=== PATIENT | male | born 1975 | race African-American/Black ===

== ENCOUNTER 2018-07-26 10:13 | Emergency (ER) | payer OTHER ==
[2018-07-26] MEDS ORDERED: ALBUTEROL SULFATE 0.083% NEB 2.5 MG/3 ML AMPUL NEB ONE (11:51)
[2018-07-26] MEDS ORDERED: KETOROLAC TROMETHAMINE 60 MG/2 ML SDV IM ONE (11:51)
--- NOTE | 2018-07-26 11:52 | ER Document Report ---
ED General - General Chief Complaint: Back Pain Stated Complaint: TAIL BONE PAIN Time Seen by Provider: 07/26/18 11:09 Notes: Patient is a 42-year-old male that presents to the emergency department for chief complaint of tailbone pain and cough and shortness of breath. Patient states he started having congestion and cough over the course of the weekend, and he was coughing so hard that it started causing pain in his tailbone and sacrum. Is been taking Aleve without much relief of this. 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 He describes the pain as a 6 out of 10, aching in nature, worse with sitting on it. He also states the cough has been productive over the weekend as well, he denies history of fevers, chills, night sweats, nausea, vomiting, chest pain or difficulty breathing just mild shortness of breath. Past Medical History: Denies chronic conditions Past Surgical History: Denies surgical history Social History: Admits to smoking cigarettes daily, denies alcohol or drug use Family History: Reviewed and noncontributory for presenting illness Allergies: Reviewed, see documented allergy list. REVIEW OF SYSTEMS: Unless otherwise stated in this report the patient's positive and negative responses for review of systems for constitutional, eyes, ENT, cardiovascular, respiratory, gastrointestinal, neurological, genitourinary, musculoskeletal, and integumentary systems and related systems to the presenting problem are either as stated in the HPI or were not pertinent or were negative for the symptoms and/or complaints related to the presenting medical problem. PHYSICAL EXAMINATION: Vital signs reviewed, nursing noted reviewed. GENERAL: Well-appearing, well-nourished and in no acute distress. HEAD: Atraumatic, normocephalic. EYES: Eyes appear normal, extraocular movements intact, sclera anicteric, conjunctiva are normal. ENT: nares patent, oropharynx clear without exudates. Moist mucous membranes. NECK: Normal range of motion, supple without lymphadenopathy LUNGS: Unilateral left lower lobe crackles and wheezing noted, otherwise breath sounds clear to auscultation in the other lung rose HEART: Regular rate and rhythm without murmurs ABDOMEN: Soft, nontender, normoactive bowel sounds. No rebound, guarding, or rigidity. No masses appreciated. Back: The coccyx and sacrum were palpated, and were tender midline, no presence of any pilonidal cyst or other infection. No induration. EXTREMITIES: Nontender, good range of motion, no pitting or edema. NEUROLOGICAL: No focal neurological deficits. Moves all extremities spontaneously Motor and sensory grossly intact on exam. PSYCH: Normal mood, normal affect. SKIN: Warm, Dry, normal turgor, no rashes or lesions noted on exposed skin TRAVEL OUTSIDE OF THE [place] IN LAST 30 DAYS: No - Related Data Allergies/Adverse Reactions: No Known Allergies Allergy (Verified 07/26/18 10:37) Past Medical History - Social History Smoking Status: Current Every Day Smoker Chew tobacco use (# tins/day): No Frequency of alcohol use: Social Drug Abuse: None Family History: Reviewed & Not Pertinent Patient has suicidal ideation: No Patient has homicidal ideation: No Renal/ Medical History: Denies: Hx Peritoneal Dialysis Physical Exam - Vital signs Vitals: Temp Pulse Resp BP Pulse Ox 98.9 F 86 20 132/77 H 97 07/26/18 10:30 07/26/18 10:30 07/26/18 10:30 07/26/18 10:30 07/26/18 10:30 Course - Re-evaluation Re-evalutation: Patient seen and examined vital signs reviewed. Laboratory data and imaging were ordered as appropriate for the patient's presenting symptoms and complaint, with consideration of any critical or life threatening conditions that may be associated with their obtained history and exam as noted above. Patient was treated with Toradol 60 mg IM Results were reviewed when available and demonstrated left lower lobe pneumonia , which is consistent with the patient's clinical examination The patient was re-evaluated and was stable, improved Evaluation was most consistent with left lower lobe community-acquired pneumonia , coccydynia Results were discussed with the patient at this point, after careful consideration I feel that that patient can be discharged from the emergency department, the patient was educated treatments and reasons to return to the emergency department based on their presumed diagnosis as noted above, they were advised to followup with a primary care physician in 2-3 days. Patient was agreeable to plan of care. *Note is created using voice recognition software and may contain spelling, syntax or grammatical errors. Chest X-Ray 07/26/18 11:50 IMPRESSION: Left lower lobe pneumonia. - Vital Signs Vital signs: Temp Pulse Resp BP Pulse Ox 98.1 F 87 16 126/67 H 97 07/26/18 13:38 07/26/18 13:38 07/26/18 13:38 07/26/18 13:38 07/26/18 13:38 Discharge - Discharge Clinical Impression: Coccydynia Community acquired pneumonia Qualifiers: Laterality: left Lung location: lower lobe of lung Qualified Code(s): J18.1 - Lobar pneumonia, unspecified organism Condition: Stable Disposition: HOME, SELF-CARE Instructions: Pneumonia ([facility]) Additional Instructions: Please return to the emergency department if you have any worsening, or concern of your symptoms. Please return to the emergency department if you develop chest pain, difficulty breathing, severe abdominal pain, or ongoing vomiting. Please follow-up with your primary care physician in 2-3 days and any other recommended physicians. If prescribed, take all medications as directed. If you have any questions or concerns do not hesitate to return the emergency department for evaluation. Prescriptions: Albuterol Sulfate [Proair HFA Inhalation Aerosol 8.5 gm MDI] 2 puff IH Q4H PRN # 1 mdi PRN Reason: Doxycycline Hyclate 100 mg PO BID #20 capsule Naproxen [Naprosyn] 500 mg PO Q12H #30 tablet Referrals: GAURAV DE ANDA MD [COMMUNITY BASED STAFF] - Follow up in 3-5 days
--- NOTE | 2018-07-26 12:53 | RADIOLOGY REPORT (SQ) ---
EXAM DESCRIPTION: CHEST 2 VIEWS COMPLETED DATE/TIME: 07/26/2018 12:35 pm REASON FOR STUDY: cough COMPARISON: None. EXAM PARAMETERS: NUMBER OF VIEWS: two views TECHNIQUE: Digital Frontal and Lateral radiographic views of the chest acquired. RADIATION DOSE: NA LIMITATIONS: none FINDINGS: LUNGS AND PLEURA: Subsegmental airspace disease in the left lower lobe. No effusions. MEDIASTINUM AND HILAR STRUCTURES: No masses or contour abnormalities. HEART AND VASCULAR STRUCTURES: Heart normal size. No evidence for failure. BONES: No acute findings. HARDWARE: None in the chest. OTHER: No other significant finding. IMPRESSION: Left lower lobe pneumonia. TECHNICAL DOCUMENTATION: JOB ID: [id number] [employer]- All Rights Reserved Reading location - IP/workstation name: [facility]-[email or web address]
[2018-07-26 13:40] VITALS: BP 126/67
== END 2018-07-26 13:40 | disposition home or self-care (01) ==
LOC: ER 10:13
DX: J18.1 Lobar pneumonia, unspecified organism (principal); M53.3 Sacrococcygeal disorders, not elsewhere classified; M54.9 Dorsalgia, unspecified; R05 Cough; R06.02 Shortness of breath; F17.210 Nicotine dependence, cigarettes, uncomplicated
CPT/HCPCS: 94640; 99283; 96372; 71046; J1885

== ENCOUNTER 2018-09-11 07:34 | Emergency (ER) | payer OTHER ==
[2018-09-11 07:43] VITALS: BP 140/73
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
== END 2018-09-11 08:49 | disposition home or self-care (01) ==
LOC: ER 07:34
DX: M54.6 Pain in thoracic spine (principal); F17.210 Nicotine dependence, cigarettes, uncomplicated; V43.52XA Car driver injured in collision with other type car in traffic accident, initial encounter; Y92.410 Unspecified street and highway as the place of occurrence of the external cause; Z87.01 Personal history of pneumonia (recurrent)
CPT/HCPCS: 99283